=== PATIENT | female | born 1965 | race Two or more races ===

== ENCOUNTER 2019-02-24 11:53 | Outpatient (CLI) | payer OTHER | END 2019-02-24 11:56 | disposition home or self-care (01) | LOC: RAD 11:53 | DX: M25.511 Pain in right shoulder (principal); M25.512 Pain in left shoulder; M25.561 Pain in right knee ==

== ENCOUNTER 2022-03-05 07:55 | Outpatient (CLI) | payer OTHER | END 2022-03-05 07:57 | disposition home or self-care (01) | LOC: RX STUDY 07:55 | DX: R13.10 Dysphagia, unspecified (principal) ==